=== PATIENT | female | born 1940 | race Caucasian/White ===

== ENCOUNTER 2017-10-10 21:47 | Inpatient (IN) | payer MEDICARE, BC ==
[~2017-10-10] VITALS: Ht 170.2 cm; Wt 55.8 kg
[~2017-10-10 21:47] MED LIST: HYDR-507 PO; LEVE1000 PO; MIRT15TA8 PO; SENN1TAB PO; SIMV40TA2 PO; TEMA15CA5 PO; TIZA2TAB PO; TRAZ-144 PO; VALS40TA4 PO
[2017-10-10] MEDS ORDERED: IV NORMAL SALINE 500 ML BAG IV ONE (22:00)
[2017-10-10 22:17] LABS: BASOPHILS % (AUTO) 0.3 % (0.0-2.0); EOSINOPHILS # (AUTO) 0.1 K/uL (0.0-0.7); EOSINOPHILS % (AUTO) 1.2 % (0.0-7.0); HEMATOCRIT 41.2 % (31.2-41.9); HEMOGLOBIN 13.6 g/dL (10.9-14.3); LYMPHOCYTES # (AUTO) 1.2 K/uL (20.0-40.0); LYMPHOCYTES % (AUTO) 17.2 % (20.5-51.5); MEAN CORPUSCULAR HEMOGLOBIN 29.7 uug (24.7-32.8); MEAN CORPUSCULAR HGB CONC 33 g/dL (32.3-35.6); MEAN CORPUSCULAR VOLUME 89.7 fL (75.5-95.3); MONOCYTES # (AUTO) 0.8 K/uL (2.0-10.0); MONOCYTES % (AUTO) 12.3 % (0.0-11.0); NEUTROPHILS # (AUTO) 4.7 K/uL (1.8-8.9); PLATELET COUNT (AUTO) 186 K/uL (179-408); WHITE BLOOD COUNT (AUTO) 6.8 K/uL (3.8-11.8)
[2017-10-10] MEDS ORDERED: AMLO10TA2 GT (22:22)
[2017-10-10] MEDS ORDERED: IPRA12.9 IH (22:22)
[2017-10-10] MEDS ORDERED: DESM0.2T23 (22:22)
[2017-10-10] MEDS ORDERED: CARV3.122 GT (22:22)
[2017-10-10] MEDS ORDERED: ALBU2.5V38 IH (22:22)
[2017-10-10] MEDS ORDERED: DOCU100C36 GT (22:22)
[2017-10-10] MEDS ORDERED: PANT40TA4 PO (22:22)
[2017-10-10] MEDS ORDERED: LEVE500T20 GT (22:22)
[2017-10-10] MEDS ORDERED: OXYB5TAB11 GT (22:22)
[2017-10-10] MEDS ORDERED: BUDE0.5A4 IH (22:22)
[2017-10-10] MEDS ORDERED: MULT-213 GT (22:22)
[2017-10-10 22:27] LABS: CARBON DIOXIDE 29 mmol/L (21-32); CHLORIDE 106 mmol/L (98-107); CREATININE 3.2 mg/dL (0.6-1.3); GLUCOSE 98 mg/dL (74-106); POTASSIUM 3.4 mmol/L (3.5-5.1); UREA NITROGEN, BLOOD 41 mg/dL (7-18)
--- NOTE | 2017-10-10 22:29 | NUR ---
went to cat scan via [facility] .
[2017-10-10 22:32] LABS: ALANINE AMINOTRANSFERASE 42 U/L (14-59); ALKALINE PHOSPHATASE 68 U/L (50-136); ASPARTATE AMINOTRANSFERASE 34 U/L (15-37); BILIRUBIN,DIRECT 0.2 mg/dL (0.0-0.2); BILIRUBIN,TOTAL 0.6 mg/dL (0.2-1.0)
--- NOTE | 2017-10-10 23:29 | NUR ---
Patient in bed, no acute distress noted. All patient needs attended and met. Call light is within reach. VSS. Family at bedside.
--- NOTE | 2017-10-11 00:06 | NUR ---
Report given to Corinna Sims on telemetry.
--- NOTE | 2017-10-11 00:14 | NUR ---
Pt. admitted to Telemetry , under care of Oskar Ortiz NP/ Lalita POWELL. Belongs List completed
--- NOTE | 2017-10-11 00:30 | NUR ---
Received pt to telemetry floor via [facility] with manager client at bedside. IV to RAC is leaking, dressing changed. Pt is left hemiplegic with contracture of LUE. Incontinent of bowel and bladder, changed diaper and sheets as pt had a bowel movement and soaked in bodily fluids. Noted with g-tube in place. Noted with healed trach scar to throat and old healed abdominal midline incision. Sacral redness/abrasion noted, picture taken and placed in chart. On-call MD called for orders. Vital signs stable at this time. Denies pain or discomfort upon assessment.
[2017-10-11 00:49] VITALS: BP 138/66
[2017-10-11] MEDS ORDERED: ONDANSETRON 4 MG/2 ML VIAL IV PRN (02:15)
[2017-10-11] MEDS ORDERED: IV NS 1000 ML 1,000 ML IV PRN (02:15)
[2017-10-11] MEDS ORDERED: HYDROCODONE/APAP 5-325MG TABLET PO PRN (02:15)
[2017-10-11] MEDS ORDERED: ACETAMINOPHEN 325 MG TABLET PO PRN (02:15)
[2017-10-11] MEDS ORDERED: Z GUARD REMEDY PASTE 57 GM TUBE TOP PRN ×2 (02:15→13:30)
[2017-10-11] MEDS ORDERED: MAGNESIUM HYDROXIDE 30 ML LIQUID UDC PO PRN (02:15)
[2017-10-11] MEDS ORDERED: ZOLPIDEM 5 MG TABLET PO PRN (02:15)
[2017-10-11 04:00] VITALS: BP 143/60
[2017-10-11 05:08] LABS: BASOPHILS % (AUTO) 0.3 % (0.0-2.0); EOSINOPHILS # (AUTO) 0.2 K/uL (0.0-0.7); EOSINOPHILS % (AUTO) 3.5 % (0.0-7.0); HEMATOCRIT 39.5 % (31.2-41.9); LYMPHOCYTES # (AUTO) 1.3 K/uL (20.0-40.0); LYMPHOCYTES % (AUTO) 20.5 % (20.5-51.5); MEAN CORPUSCULAR HEMOGLOBIN 29.6 uug (24.7-32.8); MEAN CORPUSCULAR HGB CONC 33 g/dL (32.3-35.6); MONOCYTES # (AUTO) 0.9 K/uL (2.0-10.0); MONOCYTES % (AUTO) 13.6 % (0.0-11.0); NEUTROPHILS # (AUTO) 3.9 K/uL (1.8-8.9); NEUTROPHILS % (AUTO) 62.1 % (38.5-71.5); PLATELET COUNT (AUTO) 173 K/uL (179-408); RED BLOOD CELL COUNT(AUTO) 4.39 MIL/uL (3.63-4.92); WHITE BLOOD COUNT (AUTO) 6.4 K/uL (3.8-11.8)
[2017-10-11 05:24] LABS: CARBON DIOXIDE 30 mmol/L (21-32); CHLORIDE 110 mmol/L (98-107); CREATININE 3.1 mg/dL (0.6-1.3); GLUCOSE 103 mg/dL (74-106); MAGNESIUM 1.5 mg/dL (1.8-2.4); PHOSPHOROUS 3.6 mg/dL (2.5-4.9); POTASSIUM 3.1 mmol/L (3.5-5.1); UREA NITROGEN, BLOOD 40 mg/dL (7-18)
--- NOTE | 2017-10-11 06:48 | NUR ---
Pt admitted last night with right arm swelling/edema. Swelling has gone down significantly as of this morning. Denies pain or discomfort upon assessment this morning. Caregiver at bedside. Waiting on PMD to give orders for tube feeding. Will endorse to AM nurse to call to follow-up on code status as well as type of tube feedings pt gets at home. Vital signs stable through the night. Telemetry shows normal sinus rhythm.
--- NOTE | 2017-10-11 07:43 | NUR ---
Received client in bed sleeping in a flat supine position with the HOB at semi fowlers. Caregiver by bedside. No apparent s/s of pain, SOB, distress or discomfort. O2 via NC at 2L. IV hydration running ay 50ml/cc. Bed at lowest position for safety and call light within reach for assistance
--- NOTE | 2017-10-11 08:19 | NUR ---
Seen and evaluated by
--- NOTE | 2017-10-11 08:47 | NUR ---
Physical therapy consult taking place at this time, male figure in the room answering questions Therapist questions. Caregiver by bedside
--- NOTE | 2017-10-11 09:15 | NUR ---
Dr cason taking place at this time, caregiver and male figure in the room. Client in bed alert and able to follow commands. Informed by Nazia over the phone over feeding rates and will transfer information to Dietary. It was informed that client was receiving 4 cans of Jevity 1.5 or 5 cans of Jevity 1.2 with 60cc flushing after feeding.
[2017-10-11] MEDS: HEPARIN SODIUM,PORCINE 5,000 UNITS/ML VIAL SQ SCH ×2 (09:23→20:44)
--- NOTE | 2017-10-11 09:46 | NUR ---
Left message to travel occupational therapist to call me back and inform him about feeding rates
--- NOTE | 2017-10-11 11:19 | NUR ---
Echo completed by electronics technician apprentice
[2017-10-11 11:35] VITALS: BP 156/79
--- NOTE | 2017-10-11 12:02 | NUR ---
Caroid ultrasound being done at this time
[2017-10-11] MEDS: POTASSIUM CHLORIDE 10 MEQ in IV 1/2NS 1000 ML 1,000 ML IV SCH ×2 (13:16→22:54)
[2017-10-11] MEDS ORDERED: POTASSIUM CHLORIDE 20 MEQ POWDER PACKET GT ONE (13:30)
[2017-10-11] MEDS: OXCARBAZEPINE 300 MG TABLET PO SCH ×2 (14:31→17:37)
[2017-10-11] MEDS: CARVEDILOL 6.25 MG TABLET PO SCH ×2 (14:31→17:37)
[2017-10-11] MEDS: ASPIRIN 81 MG TAB.CHEW GT SCH (14:31)
[2017-10-11] MEDS: AMIODARONE HCL 200 MG TABLET PO SCH ×2 (15:13→20:42)
[2017-10-11] MEDS ORDERED: MAGNESIUM SULFATE/D5W 100 ML IV SCH (15:45)
[2017-10-11 15:47] VITALS: BP 161/84
--- NOTE | 2017-10-11 16:45 | NUR ---
Inform dietitian and reminded them that the client was still not on feeding. Dietitian stated that she was unaware of the message left earlier today. Informed dietitian about the feeding rates, bolus and hydration, she will call back for feeding rates
[2017-10-11] MEDS ORDERED: ALBU1.25 IH (17:41)
[2017-10-11] MEDS ORDERED: DESM10SP2 NS (17:50)
[2017-10-11] MEDS ORDERED: IPRA0.2S48 IH (17:54)
[2017-10-11 18:08] LABS: *BILIRUBIN,URIN NEGATIVE (NEGATIVE); *BLOOD, URINE 3+ (NEGATIVE); *COLOR,URINE YELLOW (YELLOW); *KETONES,URINE NEGATIVE (NEGATIVE); *PROTEIN,URINE 2+ (NEGATIVE); *UROBILINOGEN,URINE 0.2 E.U./dl (NORMAL); LEUKOCYTE ESTERASE ,URINE TRACE (NEGATIVE); NITRITE, URINE NEGATIVE (NEGATIVE); PH,URINE 6.5 (5.0-8.0); UGLUCOSE NEGATIVE (NEGATIVE)
[2017-10-11] MEDS ORDERED: FIBERSOURCE HN 1000ML LIQUID GT PRN (18:15)
[2017-10-11 18:29] LABS: *CLARITY,URINE HAZY (CLEAR)
[2017-10-11 18:30] LABS: BACTERIA,URINE FEW /HPF (NONE SEEN); RBC,URINE 80-100 /HPF (0-3); SQUAMOUS EPITHELIAL CELL,UR MODERATE /HPF (NONE SEEN)
--- NOTE | 2017-10-11 18:30 | NUR ---
IV hydration stop due to noted leaking. IV line is patent and intact and flushed.
[2017-10-11 18:31] LABS: MUCUS,URINE FEW /LPF (0-FEW); TRANSITIONAL EPI CELLS,URINE MODERATE /LPF (NONE SEEN)
--- NOTE | 2017-10-11 19:00 | NUR ---
Unable to start IV line,attempted twice on the right hand an arm with no success. Will endorse to next shift to attempt IV line insertion. 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 Right arm was elevated with two pillows and a warm compress applied for infiltration. Endorse to animal rehabilitator to please continue the IV as soon as an IV line is started
--- NOTE | 2017-10-11 19:35 | NUR ---
PT RECEIVED IN BED, AWAKE. A/OX1. NONVERBAL. CAREGIVER AT BEDSIDE. V/S STABLE. IN NO ACUTE DISTRESS. NO S/S OF PAIN NOTED. ON 3LNC, TOLERATING WELL. 62 SINUS RHYTHM ON THE TELE MONITOR. IV ON ERIC FOUND INTACT AND PATENT, BUT SWELLING SEEN ON RIGHT ARM AND LEAKAGE OF UNKNOWN SOURCE NOTED. IVF HELD. G-TUBE FLUSHED WITH 150CC WATER, INTACT AND PATENT. ON FIRST STEP MATTRESS WITH HOB ELEVATED. SAFETY MEASURES IMPLEMENTED. BED ALARM SET. CALL LIGHT WITHIN REACH.
--- NOTE | 2017-10-11 19:58 | NUR ---
End of shift notes: Client is alert and oriented to herself, attempts to speak but unclear. Urine sample collected and sent to lab. Endorsed about feeding instructions through G-Tube. Caregiver by bedside. Medication tolerated well through G-Tube. Hydration on hold due to unable to get an IV line started, night manager aware. O2 via NC at 3L. Specialty mattress in place. Bed at lowest position for safety and call light within reach for assistance. Pharmacy aware about home meds and updated it in the system. No apparent s/s of SOB, pain, distress or discomfort at this time.
[2017-10-11 20:00] VITALS: BP 143/80
[2017-10-11] MEDS ORDERED: ATORVASTATIN 20 MG TABLET PO SCH (21:00)
--- NOTE | 2017-10-11 21:45 | NUR ---
G-TUBE SHOWS NO RESIDUAL AT THIS TIME. FIBERSOURCE FEEDING STARTED AT 10CC/HR. HOB ELEVATED. PT TOLERATING TUBE FEEDING WELL. WILL CON TO MONITOR.
--- NOTE | 2017-10-11 23:39 | NUR ---
NON ADMIN NEW BAG OF IVF. PREVIOUS FLUID HELD. NO PERIPHERAL IV PLACED. MIDLINE ORDERED.
[2017-10-12] VITALS: BP 141/76
--- NOTE | 2017-10-12 | NUR ---
NO RESIDUAL NOTED. TUBE FEEDING FLUSHED WITH 150CC WATER. PT TOLERATING TUBE FEEDING WELL. HOB REMAINS ELEVATED. WILL CONT TO MONITOR.
--- NOTE | 2017-10-12 03:45 | NUR ---
PT TUBE FEEDING INCREASED TO 20CC/HR. PT TOLERATING TUBE FEEDING. NO RESIDUAL NOTED. HOB ELEVATED.
[2017-10-12 04:00] VITALS: BP 147/77
--- NOTE | 2017-10-12 05:25 | NUR ---
END OF SHIFT NOTES. PT SLEPT WELL THROUGHOUT SHIFT. PERSONAL OPERATING ROOM COORDINATOR CONT TO BE AT BEDSIDE. 65 SINUS RHYTHM ON THE TELE MONITOR. IVF HELD AT THIS TIME. TUBE FEEDING RUNNING AT 20CC/HR. NO RESIDUAL, TOLERATING WELL. FLUSHED WITH 150CC OF WATER. ON FIRST STEP, WITH HOB ELEVATED. CONT TO TOLERATE 3LNC WELL. ALL NEEDS ATTENDED. SAFETY MAINTAINED. CALL LIGHT WITHIN REACH.
[2017-10-12 07:23] LABS: BASOPHILS # (AUTO) 0.1 K/uL (0.0-8.0); BASOPHILS % (AUTO) 0.8 % (0.0-2.0); EOSINOPHILS # (AUTO) 0.4 K/uL (0.0-0.7); EOSINOPHILS % (AUTO) 5.8 % (0.0-7.0); HEMATOCRIT 39.3 % (31.2-41.9); HEMOGLOBIN 13.1 g/dL (10.9-14.3); LYMPHOCYTES # (AUTO) 1.5 K/uL (20.0-40.0); MEAN CORPUSCULAR HEMOGLOBIN 29.8 uug (24.7-32.8); MEAN CORPUSCULAR HGB CONC 33 g/dL (32.3-35.6); MEAN CORPUSCULAR VOLUME 89.5 fL (75.5-95.3); MONOCYTES # (AUTO) 0.6 K/uL (2.0-10.0); MONOCYTES % (AUTO) 10.1 % (0.0-11.0); NEUTROPHILS # (AUTO) 3.7 K/uL (1.8-8.9); NEUTROPHILS % (AUTO) 59.3 % (38.5-71.5); PLATELET COUNT (AUTO) 162 K/uL (179-408); RED BLOOD CELL COUNT(AUTO) 4.38 MIL/uL (3.63-4.92); WHITE BLOOD COUNT (AUTO) 6.3 K/uL (3.8-11.8)
--- NOTE | 2017-10-12 08:34 | NUR ---
Received patient awake, alert x1-2. Unable to communicate but able to answer yes and no questions through nodding. Intact and patent midline over right upper arm. On tube feeding at 20 cc/ hr/ Tolerating well. No tin any form od distress. With rn progressive care unit at bedside.
[2017-10-12 08:35] LABS: CARBON DIOXIDE 27 mmol/L (21-32); CHLORIDE 108 mmol/L (98-107); CHOLESTEROL 184 mg/dL (<200); CREATININE 2.7 mg/dL (0.6-1.3); GLUCOSE 84 mg/dL (74-106); HDL CHOLESTEROL 71 mg/dL (40-60); MAGNESIUM 1.7 mg/dL (1.8-2.4); PHOSPHOROUS 3.6 mg/dL (2.5-4.9); POTASSIUM 3.1 mmol/L (3.5-5.1); TRIGLYCERIDES 253 MG/DL (30-150); UREA NITROGEN, BLOOD 42 mg/dL (7-18)
[2017-10-12] MEDS: OXCARBAZEPINE 300 MG TABLET PO SCH (08:40)
[2017-10-12] MEDS: CARVEDILOL 6.25 MG TABLET PO SCH (08:40)
[2017-10-12] MEDS: ASPIRIN 81 MG TAB.CHEW GT SCH (08:41)
[2017-10-12] MEDS: AMIODARONE HCL 200 MG TABLET PO SCH (08:41)
[2017-10-12] MEDS: HEPARIN SODIUM,PORCINE 5,000 UNITS/ML VIAL SQ SCH (08:42)
--- NOTE | 2017-10-12 09:37 | NUR ---
Increased tube feeding to 30 cc/hr. No residual upon checking tube. Tolerated medications well through GT, flushed accordingly. For possible discharge today.
[2017-10-12] MEDS ORDERED: POTASSIUM CHLORIDE 50 ML IV SCH (10:00)
[2017-10-12] MEDS ORDERED: POTASSIUM CHLORIDE 20 MEQ POWDER PACKET PO ONE (10:00)
[2017-10-12] MEDS: MAGNESIUM SULFATE/D5W 100 ML IV SCH ×2 (10:20→11:35)
[2017-10-12] MEDS ORDERED: POTASSIUM CHLORIDE 10 MEQ in IV 1/2NS 1000 ML 1,000 ML IV PRN (11:30)
[2017-10-12 11:35] VITALS: BP 152/85
[2017-10-12] MEDS ORDERED: AMIO200T2 PO (12:17)
[2017-10-12] MEDS: POTASSIUM CHLORIDE 10 MEQ in IV NORMAL SALINE 50 ML IV SCH ×2 (13:07→14:04)
--- NOTE | 2017-10-12 16:27 | NUR ---
Discharge to home accompanied by and nurse healthcare manager. In stable condition. VS stable. Routine discharge care done
== END 2017-10-12 16:15 | disposition home or self-care (01) | DRG 280 ==
LOC: ER 21:48 → TELE 10-11 00:10
PROVIDERS: ADMIT Nurse Practitioner Acute Care; ATTEND Internal Medicine
DX: I47.2 Ventricular tachycardia (principal); E43 Unspecified severe protein-calorie malnutrition; I21.4 Non-ST elevation (NSTEMI) myocardial infarction; N17.0 Acute kidney failure with tubular necrosis; E87.0 Hyperosmolality and hypernatremia; J96.10 Chronic respiratory failure, unspecified whether with hypoxia or hypercapnia; E23.2 Diabetes insipidus; E87.5 Hyperkalemia; I13.0 Hypertensive heart and chronic kidney disease with heart failure and stage 1 through stage 4 chronic kidney disease, or unspecified chronic kidney disease; I69.354 Hemiplegia and hemiparesis following cerebral infarction affecting left non-dominant side; Z68.1 Body mass index [BMI] 19.9 or less, adult; G90.8 Other disorders of autonomic nervous system; D63.8 Anemia in other chronic diseases classified elsewhere; Z93.1 Gastrostomy status; I69.321 Dysphasia following cerebral infarction; N18.9 Chronic kidney disease, unspecified; M19.90 Unspecified osteoarthritis, unspecified site; G40.909 Epilepsy, unspecified, not intractable, without status epilepticus; E78.5 Hyperlipidemia, unspecified; E83.42 Hypomagnesemia; E86.1 Hypovolemia; M62.50 Muscle wasting and atrophy, not elsewhere classified, unspecified site; Z86.74 Personal history of sudden cardiac arrest
CPT/HCPCS: 36415; 36569; 70030-TC; 70450; 71045; 83605; 83735; 84100; 85025; 85730; 87040; 93005; 93307; 93880; A4663; J1644; J3475; J3480; J3490; J7030; J7040